=== PATIENT | male | born 1980 | race American Indian/Alaskan Native ===

== ENCOUNTER 2018-03-07 19:04 | Emergency (ER) | payer MEDICAID ==
[2018-03-07 19:48] VITALS: BP 150/110
[2018-03-07] MEDS ORDERED: MOTRIN PO ONE (21:40)
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
== END 2018-03-07 22:44 | disposition home health service (06) ==
LOC: ED 19:04
DX: S00.03XA Contusion of scalp, initial encounter (principal); S00.81XA Abrasion of other part of head, initial encounter; Y04.2XXA Assault by strike against or bumped into by another person, initial encounter; Y93.89 Activity, other specified; Y99.8 Other external cause status; Y92.89 Other specified places as the place of occurrence of the external cause
CPT/HCPCS: 70450; 70486

== ENCOUNTER 2019-02-12 14:59 | Emergency (ER) | payer MEDICAID ==
[2019-02-12 15:37] LABS: Basophils # (Auto) 0.1 K/mm3 (0.0-0.1); Basophils % (Auto) 0.9 % (0.0-1.8); Eosinophils % (Auto) 0.3 % (0.0-4.3); Hematocrit 47.4 % (35.5-45.6); Hemoglobin 15.6 gm/dl (11.8-15.2); Lymphocytes # (Auto) 2.7 K/mm3 (1.2-5.4); Lymphocytes % (Auto) 31.2 % (13.4-35.0); Mean Corpuscular HGB Conc 33 % (32-34); Mean Corpuscular Volume 80 fl (84-94); Monocytes # (Auto) 0.6 K/mm3 (0.0-0.8); Platelet Count 212 K/mm3 (140-440); Red Blood Count 5.93 M/mm3 (3.65-5.03); Red Cell Distribution Width 16.2 % (13.2-15.2)
[2019-02-12 15:56] LABS: BUN/Creatinine Ratio 13; Blood Urea Nitrogen 12 mg/dL (9-20); Calcium 9.1 mg/dL (8.4-10.2); Hemolysis Index 30
[2019-02-12 16:06] LABS: Bacteria,Urine 4+ /HPF (Negative); Bilirubin,Urine NEG (Negative); Blood,Urine SM (Negative); Color,Urine Yellow (Yellow); Mucus,Urine FEW /HPF; Protein,Urine <15 mg/dL mg/dL (Negative)
[2019-02-12 16:11] LABS: Amphetamine Screen,Urine PRESUMPTIVE NEGATIVE; Benzodiazepines Screen,Urine PRESUMPTIVE NEGATIVE; Cannabinoid Screen,Urine PRESUMPTIVE NEGATIVE; Cocaine Screen,Urine PRESUMPTIVE NEGATIVE; Methadone Screen,Urine PRESUMPTIVE NEGATIVE; Opiate Screen,Urine PRESUMPTIVE NEGATIVE
[2019-02-12] MEDS ORDERED: ATIVAN IM PRN (16:14)
[2019-02-12] MEDS ORDERED: HALDOL IM PRN (16:14)
[2019-02-12] MEDS ORDERED: BENADRYL IM PRN (16:14)
--- NOTE | 2019-02-12 16:16 | Emergency Department Report ---
HPI - General Chief Complaint: Psych Time Seen by Provider: 02/12/19 16:07 - HPI HPI: Room 16 The patient is a 38-year-old male presenting with chief complaint suicidal ideation. The patient states she's had suicidal ideation for one day. Patient denies any active attempt at harming himself states his plan was to use a a pencil or knife and "cut myself in the heart and then jump off the bridge." Patient has a history of previous suicide attempts. Location: Mental state Duration: [See above] Quality: [See above] Severity: [See above] Modifying factors: [see above] Context: [see above] Mode of transportation: [not driving] ED Past Medical Hx - Past Medical History Previous Medical History?: Yes Hx Psychiatric Treatment: Yes (schizophrenic, Bipolar, mental and physically challenged) - Surgical History Past Surgical History?: Yes Additional Surgical History: Reconstructive facial surgery - Family History Family history: no significant - Social History Smoking Status: Never Smoker Substance Use Type: None - Medications Home Medications: Home Medications Medication Instructions Recorded Confirmed Last Taken Type Divalproex ER [DepaKOTE ER] 500 mg PO QHS 02/12/19 02/12/19 Unknown History Docusate Sodium [Move It Along] 100 mg PO QHS 02/12/19 02/12/19 Unknown History FLUoxetine HCL [FLUoxetine] 20 mg PO QAM 02/12/19 02/12/19 Unknown History Propranolol [Inderal] 10 mg PO BID 02/12/19 02/12/19 Unknown History QUEtiapine [SEROquel] 100 mg PO QHS 02/12/19 02/12/19 Unknown History Ziprasidone [Geodon] 60 mg PO BID 02/12/19 02/12/19 Unknown History cloNIDine [Catapres] 0.05 mg PO BID 02/12/19 02/12/19 Unknown History clonazePAM [Klonopin] 1 mg PO BID 02/12/19 02/12/19 Unknown History ED Review of Systems ROS: Stated complaint: EVALUATION Other details as noted in HPI Constitutional: no symptoms reported Eyes: denies: eye pain ENT: denies: throat pain Respiratory: no symptoms reported Cardiovascular: denies: chest pain Endocrine: no symptoms reported Gastrointestinal: denies: abdominal pain Genitourinary: denies: dysuria Musculoskeletal: denies: back pain Neurological: denies: headache Psychiatric: suicidal thoughts Physical Exam - Physical Exam Vital Signs: Vital Signs 02/12/19 02/12/19 15:07 16:06 Temperature 98.8 F Pulse Rate 73 Respiratory 16 16 Rate Blood Pressure 146/100 [Right] O2 Sat by Pulse 97 Oximetry Physical Exam: GENERAL: The patient is well-developed well-nourished male lying on stretcher not appearing to be in acute distress. [] HEENT: Extraocular motions are intact. Patient has moist mucous membranes. NECK: Supple. Trachea midline CHEST/LUNGS: Clear to auscultation. There is no respiratory distress noted. HEART/CARDIOVASCULAR: Regular. There is no tachycardia. There is no gallop rub or murmur. ABDOMEN: Abdomen is soft, nontender. Patient has normal bowel sounds. There is no abdominal distention. SKIN: There is no rash. There is no edema. There is no diaphoresis. NEURO: The patient is awake, alert, and oriented. The patient is cooperative. The patient has normal speech MUSCULOSKELETAL:There is no evidence of acute injury. ED Course Vital Signs 02/12/19 02/12/19 15:07 16:06 Temperature 98.8 F Pulse Rate 73 Respiratory 16 16 Rate Blood Pressure 146/100 [Right] O2 Sat by Pulse 97 Oximetry ED Medical Decision Making - Lab Data Result diagrams: 02/12/19 15:13 02/12/19 15:13 Laboratory Tests 02/12/19 02/12/19 02/12/19 15:13 15:13 15:13 WBC RBC Hgb Hct MCV MCH MCHC RDW Plt Count Lymph % (Auto) [place] % (Auto) Eos % (Auto) Baso % (Auto) Lymph # [place] # Eos # Baso # Seg Neutrophils % Seg Neutrophils # Sodium 139 Potassium 4.1 Chloride 101.5 Carbon Dioxide 26 Anion Gap 16 BUN 12 Creatinine 0.9 Estimated GFR > 60 BUN/Creatinine Ratio 13 Glucose 100 Calcium 9.1 Urine Color Urine Turbidity Urine pH Ur Specific [place] Urine Protein Urine Glucose (UA) Urine Ketones Urine Blood Urine Nitrite Urine Bilirubin Urine Urobilinogen Ur Leukocyte Esterase Urine WBC (Auto) Urine RBC (Auto) Urine Bacteria (Auto) Urine Mucus Salicylates < 0.3 L Urine Opiates Screen Urine Methadone Screen Acetaminophen < 5.0 L Ur Barbiturates Screen Valproic Acid Ur Phencyclidine Scrn Ur Amphetamines Screen U Benzodiazepines Scrn Urine Cocaine Screen U Marijuana (THC) Screen Drugs of Abuse Note Plasma/Serum Alcohol 02/12/19 02/12/19 02/12/19 15:13 15:13 15:13 WBC 8.7 RBC 5.93 H Hgb 15.6 H Hct 47.4 H MCV 80 L MCH 26 L MCHC 33 RDW 16.2 H Plt Count 212 Lymph % (Auto) 31.2 [place]anan % (Auto) 7.0 Eos % (Auto) 0.3 Baso % (Auto) 0.9 Lymph # 2.7 [place]anan # 0.6 Eos # 0.0 Baso # 0.1 Seg Neutrophils % 60.6 Seg Neutrophils # 5.3 Sodium Potassium Chloride Carbon Dioxide Anion Gap BUN Creatinine Estimated GFR BUN/Creatinine Ratio Glucose Calcium Urine Color Urine Turbidity Urine pH Ur Specific [place] Urine Protein Urine Glucose (UA) Urine Ketones Urine Blood Urine Nitrite Urine Bilirubin Urine Urobilinogen Ur Leukocyte Esterase Urine WBC (Auto) Urine RBC (Auto) Urine Bacteria (Auto) Urine Mucus Salicylates Urine Opiates Screen Urine Methadone Screen Acetaminophen Ur Barbiturates Screen Valproic Acid 91.8 Ur Phencyclidine Scrn Ur Amphetamines Screen U Benzodiazepines Scrn Urine Cocaine Screen U Marijuana (THC) Screen Drugs of Abuse Note Plasma/Serum Alcohol < 0.01 02/12/19 02/12/19 15:40 15:40 WBC RBC Hgb Hct MCV MCH MCHC RDW Plt Count Lymph % (Auto) [place] % (Auto) Eos % (Auto) Baso % (Auto) Lymph # [place] # Eos # Baso # Seg Neutrophils % Seg Neutrophils # Sodium Potassium Chloride Carbon Dioxide Anion Gap BUN Creatinine Estimated GFR BUN/Creatinine Ratio Glucose Calcium Urine Color Yellow Urine Turbidity Slightly-cloudy Urine pH 6.0 Ur Specific [place] 1.019 Urine Protein <15 mg/dl Urine Glucose (UA) Neg Urine Ketones Tr Urine Blood Sm Urine Nitrite Pos Urine Bilirubin Neg Urine Urobilinogen 2.0 Ur Leukocyte Esterase Mod Urine WBC (Auto) 67.0 H Urine RBC (Auto) 20.0 Urine Bacteria (Auto) 4+ Urine Mucus Few Salicylates Urine Opiates Screen Presumptive negative Urine Methadone Screen Presumptive negative Acetaminophen Ur Barbiturates Screen Presumptive negative Valproic Acid Ur Phencyclidine Scrn Presumptive negative Ur Amphetamines Screen Presumptive negative U Benzodiazepines Scrn Presumptive negative Urine Cocaine Screen Presumptive negative U Marijuana (THC) Screen Presumptive negative Drugs of Abuse Note Disclamer Plasma/Serum Alcohol - Differential Diagnosis suicidal ideation Critical care attestation.: If time is entered above; I have spent that time in minutes in the direct care of this critically ill patient, excluding procedure time. ED Disposition Clinical Impression: Suicidal ideation Disposition: DC/TX-65 PSY HOSP/PSY UNIT Is pt being admited?: No Does the pt Need Aspirin: No Condition: Serious Time of Disposition: 16:25 (awaiting acceptance)
[2019-02-12] MEDS ORDERED: LEVAQUIN PO SCH (22:00)
[2019-02-13 08:09] LABS: Alanine Aminotransferase 5 units/L (7-56)
[2019-02-13 08:39] VITALS: BP 146/88
[2019-02-13] MEDS ORDERED: CATAPRES PO SCH (10:00)
[2019-02-13] MEDS ORDERED: INDERAL PO SCH (10:00)
--- NOTE | 2019-02-13 11:37 | Consultation ---
History of Present Illness - Reason for Consult Consult date: 02/13/19 Reason for consult: Mental Health Evaluation Requesting physician: LEA RESTREPO - Chief Complaint Chief complaint: "I heard someone say something" - History of Present Psychiatric Illness 38 y.o. AA male who presented to the ER for SI's. Today the patient was calm during the assessment. He stated that he mentioned killing himself at his day program because he heard another resident mention that. He stated, "I was repeating what I heard." Per collateral information from the patient's campground caretaker Mr Julius Jacinto at [phone] confirmed that the patient may have heard another one of his client mention something about "suicide." He stated that he have taken care the patient the last 10 months. He stated that the patient never mentioned being suicidal or attempted suicide in his care. He stated that the patent is seen by Dr De Oliveira for outpatient psy services. He stated that the patient is compliant with his medications. The patient denies SI/HI's and AVH's. Medications and Allergies Allergies Allergy/AdvReac Type Severity Reaction Status Date / Time No Known Allergies Allergy Verified 02/12/19 21:20 Home Medications Medication Instructions Recorded Confirmed Last Taken Type Divalproex ER [DepaKOTE ER] 500 mg PO QHS 02/12/19 02/12/19 Unknown History Docusate Sodium [Move It Along] 100 mg PO QHS 02/12/19 02/12/19 Unknown History FLUoxetine HCL [FLUoxetine] 20 mg PO QAM 02/12/19 02/12/19 Unknown History Propranolol [Inderal] 10 mg PO BID 02/12/19 02/12/19 Unknown History QUEtiapine [SEROquel] 100 mg PO QHS 02/12/19 02/12/19 Unknown History Ziprasidone [Geodon] 60 mg PO BID 02/12/19 02/12/19 Unknown History cloNIDine [Catapres] 0.05 mg PO BID 02/12/19 02/12/19 Unknown History clonazePAM [Klonopin] 1 mg PO BID 02/12/19 02/12/19 Unknown History Active Meds: Active Medications Clonidine HCl (Catapres) 0.05 mg PO BID CARIE Last Admin: 02/13/19 11:02 Dose: 0.05 mg Documented by: Diphenhydramine HCl (Benadryl) 50 mg IM Q6H PRN PRN Reason: Agitation Levofloxacin (Levaquin) 500 mg PO QDAY@2200 [facility] Stop: 02/18/19 22:00 Last Admin: 02/12/19 22:01 Dose: 500 mg Documented by: Lorazepam (Ativan) 2 mg IM Q8H PRN PRN Reason: Agitation Propranolol HCl (Inderal) 10 mg PO BID [facility] Last Admin: 02/13/19 11:04 Dose: 10 mg Documented by: Past psychiatric history - Past Medical History Past Medical History: other (Unable to obtain ) Past Surgical History: Other (Unabel to obtain ) - past Psychiatric treatment and history psychiatric treatment history: Unable to obtain a psy hx and fam psy hx. - Social History Social history: other (Reside at [facility] Mental Status Exam - Vital signs Last Vital Signs Temp 97.5 F L 02/13/19 08:00 Pulse 62 02/13/19 11:04 Resp 18 02/13/19 08:00 BP 146/88 02/13/19 11:04 Pulse Ox 100 02/13/19 08:00 - Exam Narrative exam: MSE: Appearance: calm Behavior: regular eye contact Speech: regular rate and tone Mood: "okay" Affect: congruent to mood Thought Process: circumstantial Thought Content: denies SI/HI's and AVH's Motor Activity: sitting up in the bed Cognition: A/O x 3 Insight: fair Judgment: variable to fair Results Result Diagrams: 02/12/19 15:13 02/12/19 15:13 Abnormal lab results 02/12/19 02/12/19 02/12/19 Range/Units 15:13 15:13 15:13 RBC 5.93 H (3.65-5.03) M/mm3 Hgb 15.6 H (11.8-15.2) gm/dl Hct 47.4 H (35.5-45.6) % MCV 80 L (84-94) fl MCH 26 L (28-32) pg RDW 16.2 H (13.2-15.2) % ALT (7-56) units/L Urine WBC (Auto) (0.0-6.0) /HPF Salicylates < 0.3 L (2.8-20.0) mg/dL Acetaminophen < 5.0 L (10.0-30.0) ug/mL 02/12/19 02/13/19 Range/Units 15:40 07:42 RBC (3.65-5.03) M/mm3 Hgb (11.8-15.2) gm/dl Hct (35.5-45.6) % MCV (84-94) fl MCH (28-32) pg RDW (13.2-15.2) % ALT 5 L (7-56) units/L Urine WBC (Auto) 67.0 H (0.0-6.0) /HPF Salicylates (2.8-20.0) mg/dL Acetaminophen (10.0-30.0) ug/mL All other labs normal. Assessment and Plan Assessment and plan: Impression: Unspecified Intellectual Disability. Today the patient was calm during the assessment. The patient is no threat to self. Recommendation/Plan: Rescind 1013. The patient do not need any prescriptions. Dispo: The patient can follow up with Dr De Oliveira for outpatient psy services. Will staff with Dr Axel Zavala.
== END 2019-02-13 13:14 | disposition home or self-care (01) ==
LOC: EEVIPCON 14:59 → ED 14:59
DX: F79 Unspecified intellectual disabilities (principal); F20.9 Schizophrenia, unspecified; F31.9 Bipolar disorder, unspecified
CPT/HCPCS: 36415; 80048; 80164; 80307; 81001; 82150; 82962; 83690; 84075; 84450; 84460; 85025; 87076; 87086; 87186; 99284; G0480; 80320

== ENCOUNTER 2019-10-20 10:06 | Outpatient (CLI) | payer MEDICAID ==
--- NOTE | 2019-10-22 15:52 | Cat Scan Report ---
CT ABDOMEN AND PELVIS WITHOUT CONTRAST INDICATION / CLINICAL INFORMATION: N20.0Calculus of kidney. TECHNIQUE: Axial CT images were obtained through the abdomen and pelvis without IV contrast. Sagittal and sousa l reformatted images. All CT scans at this location are performed using CT dose reduction for ALARA b y means of automated exposure control. COMPARISON: None available. FINDINGS: LOWER CHEST: No significant abnormality. LIVER: No significant abnormality. GALLBLADDER: No significant abnormality. BILE DUCTS: No significant abnormality. PANCREAS: No significant abnormality. SPLEEN: No significant abnormality. ADRENALS: No significant abnormality. RIGHT KIDNEY and URETER: No significant abnormality. LEFT KIDNEY and URETER: No significant abnormality. STOMACH and SMALL BOWEL: No significant abnormality. COLON: No significant abnormality. APPENDIX: Not confidently identified. PERITONEUM: No free fluid. No free air. No fluid collection. LYMPH NODES: No significant adenopathy. AORTA and ARTERIES: No significant abnormality. IVC and VEINS: No significant abnormality. URINARY BLADDER: No significant abnormality. REPRODUCTIVE ORGANS: No significant abnormality. ADDITIONAL FINDINGS: None. SKELETAL SYSTEM: No significant abnormality. IMPRESSION: No significant abnormality. No nephrolithiasis is detected. Signer Name: Zackery Hernandez Jr, MD Signed: 10/20/2019 11:14 AM Workstation Name: [id number]
== END 2019-10-20 10:07 | disposition home or self-care (01) ==
LOC: CT 10:06
PROVIDERS: ATTEND Urology
DX: N20.0 Calculus of kidney (principal)
CPT/HCPCS: 74176

== ENCOUNTER 2020-11-26 19:08 | Emergency (ER) | payer MEDICAID ==
[2020-11-26 20:09] VITALS: BP 146/99
--- NOTE | 2020-11-26 20:50 | Emergency Department Report ---
Chief Complaint: Medical Clearance Stated Complaint: INGESTION Time Seen by Provider: 11/26/20 20:47 - HPI History of Present Illness: 40-year-old male patient presents emergency department from [facility] accompanied by state employee for medical clearance. Patient took 1 unauthorized laxative 2 days ago. Patient denies attempting to harm himself intentionally. He is asymptomatic. No complaints. - ROS Review of Systems: GENERAL: Negative for fever. CARDIOVASCULAR: Negative for chest pain. PULMONARY: Negative for shortness of breath. GASTROINTESTINAL: Negative for abdominal pain. MUSCULOSKELETAL: Negative for back pain. NEUROLOGICAL: Negative for headache. INTEGUMENTARY: Negative for rash. - Exam Vital Signs: Vital Signs 11/26/20 20:04 Temperature 98.6 F Pulse Rate 75 Respiratory 16 Rate Blood Pressure 146/99 O2 Sat by Pulse 94 Oximetry Physical Exam: General: Awake, appropriately interactive, no acute distress. Neck: Supple. Full range of motion intact. Cardiovascular: Normal peripheral perfusion. Pulmonary: No respiratory distress. Patient is speaking normally without use of accessory muscles. Abdomen: Soft, nontender, nondistended. Skin: No apparent rashes or lesions. Neurological: No facial asymmetry. Speech is clear. Follows commands. Musculoskeletal: Moves all four extremities spontaneously with normal range of motion. MSE screening note: Focused history and physical exam performed. Due to findings the following was ordered: ED Medical Decision Making - Medical Decision Making Patient was sent to the emergency department by his residential facility for medical clearance after taking one laxative 2 days ago. He has no complaints. Physical examination is normal. He was not attempting to harm himself. No clinical indication for further diagnostic work-up on an emergent basis or for involuntary psychiatric hold orders at this time. Patient has been medically cleared and will be discharged back to his residential facility. ED Disposition for MSE Clinical Impression: General medical exam Disposition: Z-01 MED SCREENING EXAM-CONT Is pt being admited?: No Does the pt Need Aspirin: No Condition: Stable Instructions: Medical Screening Exam Additional Instructions: Dev Jordan has been medically cleared to return to his facility. Return to the emergency department for any new symptoms. Referrals: SERGIO MAYO MD [Primary Care Provider] - 3-5 Days Time of Disposition: 20:50
== END 2020-11-26 21:25 | disposition home or self-care (01) ==
LOC: ED 19:08
DX: Z00.00 Encounter for general adult medical examination without abnormal findings (principal); Z53.21 Procedure and treatment not carried out due to patient leaving prior to being seen by health care provider

== ENCOUNTER 2020-12-03 18:22 | Emergency (ER) | payer MEDICAID ==
[2020-12-03] MEDS ORDERED: ONDANSETRON 4 MG/2 ML INJ ONE (18:40)
[2020-12-03] MEDS ORDERED: ONDANSETRON 4 MG/2 ML INJ IV ONE (18:45)
[2020-12-03] MEDS ORDERED: PANTOPRAZOLE 40 MG INJ IV ONE (19:37)
--- NOTE | 2020-12-03 19:43 | Emergency Department Report ---
ED Abdominal Pain HPI - General Stated Complaint: STOMACH PAIN PUI?: No Time Seen by Provider: 12/03/20 19:35 Source: patient, EMS, old records reviewed Mode of arrival: Ambulatory Limitations: No Limitations - History of Present Illness Initial Comments: CC: abdominal pain HPI: This is a 40 yo male with history of traumatic brain injury intellectual delay schizophrenia bipolar disorder who presents from personal correction with abdominal pain and vomiting. He rapidly ate ravioli this afternoon. After vomiting several times, the abdominal comfort has resolved. He denies fever, diarrhea. His last bowel movement was 8 days ago last week . Patient arrived via EMS. MD Complaint: abdominal pain -: This morning Location: diffuse Severity: mild Quality: dull Consistency: now resolved Improves With: movement Worsens With: nothing Associated Symptoms: nausea, vomiting, constipation - Related Data Home Medications Medication Instructions Recorded Confirmed Last Taken Divalproex ER [DepaKOTE ER] 500 mg PO QHS 02/12/19 02/12/19 Unknown Docusate Sodium [Move It Along] 100 mg PO QHS 02/12/19 02/12/19 Unknown FLUoxetine HCL [FLUoxetine] 20 mg PO QAM 02/12/19 02/12/19 Unknown QUEtiapine [SEROquel] 100 mg PO QHS 02/12/19 02/12/19 Unknown Ziprasidone [Geodon] 60 mg PO BID 02/12/19 02/12/19 Unknown cloNIDine [Catapres] 0.05 mg PO BID 02/12/19 02/12/19 Unknown clonazePAM [Klonopin] 1 mg PO BID 02/12/19 02/12/19 Unknown propranoloL [Inderal] 10 mg PO BID 02/12/19 02/12/19 Unknown Previous Rx's Medication Instructions Recorded Last Taken Type Lactulose [Cephulac] 30 ml PO QDAY PRN #90 ml 12/03/20 Unknown Rx Ondansetron [Zofran Odt] 4 mg PO Q8HR PRN #10 tab.rapdis 12/03/20 Unknown Rx Allergies Allergy/AdvReac Type Severity Reaction Status Date / Time No Known Allergies Allergy Verified 02/12/19 21:20 ED Review of Systems ROS: Stated complaint: STOMACH PAIN Other details as noted in HPI Comment: All other systems reviewed and negative Constitutional: denies: fever, malaise Respiratory: denies: cough, shortness of breath Gastrointestinal: abdominal pain, nausea, vomiting, constipation ED Past Medical Hx - Past Medical History Previous Medical History?: Yes Hx Psychiatric Treatment: Yes (schizophrenic, Bipolar, mental and physically challenged) Additional medical history: TBI - Surgical History Past Surgical History?: Yes Additional Surgical History: Reconstructive facial surgery - Social History Smoking Status: Current Some Day Smoker - Medications Home Medications: Home Medications Medication Instructions Recorded Confirmed Last Taken Type Divalproex ER [DepaKOTE ER] 500 mg PO QHS 02/12/19 02/12/19 Unknown History Docusate Sodium [Move It Along] 100 mg PO QHS 02/12/19 02/12/19 Unknown History FLUoxetine HCL [FLUoxetine] 20 mg PO QAM 02/12/19 02/12/19 Unknown History QUEtiapine [SEROquel] 100 mg PO QHS 02/12/19 02/12/19 Unknown History Ziprasidone [Geodon] 60 mg PO BID 02/12/19 02/12/19 Unknown History cloNIDine [Catapres] 0.05 mg PO BID 02/12/19 02/12/19 Unknown History clonazePAM [Klonopin] 1 mg PO BID 02/12/19 02/12/19 Unknown History propranoloL [Inderal] 10 mg PO BID 02/12/19 02/12/19 Unknown History Lactulose [Cephulac] 30 ml PO QDAY PRN #90 ml 12/03/20 Unknown Rx Ondansetron [Zofran Odt] 4 mg PO Q8HR PRN #10 tab.rapdis 12/03/20 Unknown Rx ED Physical Exam - General Limitations: No Limitations General appearance: alert, in no apparent distress, other (Pleasant no acute distress talkative appears comfortable) - Head Head exam: Present: atraumatic, normocephalic - Eye Eye exam: Present: normal appearance - ENT ENT exam: Present: mucous membranes moist - Neck Neck exam: Present: normal inspection, full ROM - Respiratory Respiratory exam: Present: normal lung sounds bilaterally. Absent: respiratory distress, wheezes, rales, rhonchi - Cardiovascular Cardiovascular Exam: Present: regular rate, normal rhythm, normal heart sounds. Absent: systolic murmur, diastolic murmur, rubs, gallop - GI/Abdominal GI/Abdominal exam: Present: soft, normal bowel sounds. Absent: distended, tenderness, guarding, rebound - Rectal Rectal exam: Present: deferred - Extremities Exam Extremities exam: Present: normal inspection - Neurological Exam Neurological exam: Present: alert, oriented X3 - Psychiatric Psychiatric exam: Present: normal mood, flat affect - Skin Skin exam: Present: warm, dry, intact, normal color. Absent: rash ED Course Vital Signs 12/03/20 20:04 Temperature 98.6 F Pulse Rate 71 Respiratory 18 Rate Blood Pressure 137/96 [Left] O2 Sat by Pulse 97 Oximetry ED Medical Decision Making - Lab Data Result diagrams: 12/03/20 19:40 12/03/20 19:40 - Medical Decision Making Dyspepsia, indigestion: CBC chemistry within normal limits. Resolution of mild hypokalemia. Do suspect that constipation is a contributing factor. Urinalysis contaminated without overt signs of UTI. Patient is discharged home with prescription for lactulose as needed for constipation Critical care attestation.: If time is entered above; I have spent that time in minutes in the direct care of this critically ill patient, excluding procedure time. ED Disposition Clinical Impression: Dyspepsia, Indigestion, Constipation Disposition: DC-01 TO HOME OR SELFCARE Is pt being admited?: No Does the pt Need Aspirin: No Condition: Stable Instructions: Indigestion, [id number], Chronic Constipation Prescriptions: Lactulose [Cephulac] 30 ml PO QDAY PRN #90 ml PRN Reason: Constipation Ondansetron [Zofran Odt] 4 mg PO Q8HR PRN #10 tab.rapdis PRN Reason: Nausea Referrals: ALLIE MATHEWS MD [Staff Physician] - as needed
[2020-12-03 20:05] VITALS: BP 137/96
[2020-12-03 20:25] LABS: Basophils # (Auto) 0.2 K/mm3 (0.0-0.1); Basophils % (Auto) 2.2 % (0.0-1.8); Eosinophils % (Auto) 0.4 % (0.0-4.3); Hematocrit 46.4 % (35.5-45.6); Lymphocytes # (Auto) 2.7 K/mm3 (1.2-5.4); Lymphocytes % (Auto) 38.9 % (13.4-35.0); Mean Corpuscular HGB Conc 30 % (32-34); Mean Corpuscular Volume 74 fl (84-94); Platelet Count 207 K/mm3 (140-440); Red Blood Count 6.26 M/mm3 (3.65-5.03); Red Cell Distribution Width 19.2 % (13.2-15.2)
[2020-12-03 20:35] LABS: Bacteria,Urine 2+ /HPF (Negative); Bilirubin,Urine NEG (Negative); Blood,Urine NEG (Negative); Color,Urine Yellow (Yellow); Mucus,Urine FEW /HPF; Protein,Urine <15 mg/dL mg/dL (Negative)
[2020-12-03 21:15] LABS: Alanine Aminotransferase 9 units/L (7-56); BUN/Creatinine Ratio 11; Blood Urea Nitrogen 9 mg/dL (9-20); Calcium 8.7 mg/dL (8.4-10.2); Hemolysis Index 16
== END 2020-12-03 22:25 | disposition home or self-care (01) ==
LOC: ED 18:22
DX: K59.00 Constipation, unspecified (principal); K30 Functional dyspepsia; F20.9 Schizophrenia, unspecified; F31.9 Bipolar disorder, unspecified; F17.200 Nicotine dependence, unspecified, uncomplicated; Z98.890 Other specified postprocedural states; Z79.899 Other long term (current) drug therapy
CPT/HCPCS: 36415; 80053; 81001; 83690; 85025; 96374; 96375; 99284; C9113; J2405

== ENCOUNTER 2021-03-12 17:23 | Emergency (ER) | payer MEDICAID ==
[2021-03-12 17:31] VITALS: BP 149/100
--- NOTE | 2021-03-12 19:04 | Emergency Department Report ---
ED General Adult HPI - General Chief complaint: High BP Stated complaint: CHECK BP Time Seen by Provider: 03/12/21 17:42 Source: patient Mode of arrival: Ambulatory Limitations: No Limitations - History of Present Illness Initial comments: 40-year-old -[place] male patient with history of traumatic brain injury intellectual delay schizophrenia bipolar disorder presents with his senior center manager for elevated blood pressure reading today. Patient's senior center manager states his nurse noted his blood pressure to be 146/100 today. Patient denies any headache or other symptoms. His senior center manager states he has been behaving normally and has not had any complaints. No prior history of hypertension per patient's senior center manager. - Related Data Home Medications Medication Instructions Recorded Confirmed Last Taken Divalproex ER [DepaKOTE ER] 500 mg PO QHS 02/12/19 02/12/19 Unknown Docusate Sodium [Move It Along] 100 mg PO QHS 02/12/19 02/12/19 Unknown FLUoxetine HCL [FLUoxetine] 20 mg PO QAM 02/12/19 02/12/19 Unknown QUEtiapine [SEROquel] 100 mg PO QHS 02/12/19 02/12/19 Unknown Ziprasidone [Geodon] 60 mg PO BID 02/12/19 02/12/19 Unknown cloNIDine [Catapres] 0.05 mg PO BID 02/12/19 02/12/19 Unknown clonazePAM [Klonopin] 1 mg PO BID 02/12/19 02/12/19 Unknown propranoloL [Inderal] 10 mg PO BID 02/12/19 02/12/19 Unknown Previous Rx's Medication Instructions Recorded Last Taken Type Lactulose [Cephulac] 30 ml PO QDAY PRN #90 ml 12/03/20 Unknown Rx Ondansetron [Zofran Odt] 4 mg PO Q8HR PRN #10 tab.rapdis 12/03/20 Unknown Rx Allergies Allergy/AdvReac Type Severity Reaction Status Date / Time No Known Allergies Allergy Verified 03/12/21 17:24 ED Review of Systems ROS: Stated complaint: CHECK BP Other details as noted in HPI Constitutional: denies: diaphoresis, malaise, weakness Respiratory: denies: cough, shortness of breath Cardiovascular: denies: chest pain Neurological: denies: headache, other (Dizziness) ED Past Medical Hx - Past Medical History Hx Psychiatric Treatment: Yes (schizophrenic, Bipolar, mental and physically challenged) Additional medical history: TBI - Surgical History Additional Surgical History: Reconstructive facial surgery - Social History Smoking Status: Never Smoker Substance Use Type: None - Medications Home Medications: Home Medications Medication Instructions Recorded Confirmed Last Taken Type Divalproex ER [DepaKOTE ER] 500 mg PO QHS 02/12/19 02/12/19 Unknown History Docusate Sodium [Move It Along] 100 mg PO QHS 02/12/19 02/12/19 Unknown History FLUoxetine HCL [FLUoxetine] 20 mg PO QAM 02/12/19 02/12/19 Unknown History QUEtiapine [SEROquel] 100 mg PO QHS 02/12/19 02/12/19 Unknown History Ziprasidone [Geodon] 60 mg PO BID 02/12/19 02/12/19 Unknown History cloNIDine [Catapres] 0.05 mg PO BID 02/12/19 02/12/19 Unknown History clonazePAM [Klonopin] 1 mg PO BID 02/12/19 02/12/19 Unknown History propranoloL [Inderal] 10 mg PO BID 02/12/19 02/12/19 Unknown History Lactulose [Cephulac] 30 ml PO QDAY PRN #90 ml 12/03/20 Unknown Rx Ondansetron [Zofran Odt] 4 mg PO Q8HR PRN #10 tab.rapdis 12/03/20 Unknown Rx ED Physical Exam - General Limitations: No Limitations General appearance: alert, in no apparent distress - Head Head exam: Present: atraumatic, normocephalic - Eye Eye exam: Present: normal appearance. Absent: scleral icterus - Respiratory Respiratory exam: Absent: respiratory distress - Cardiovascular Cardiovascular Exam: Present: regular rate, normal rhythm - Neurological Exam Neurological exam: Present: alert, normal gait - Psychiatric Psychiatric exam: Present: normal affect, normal mood - Skin Skin exam: Present: warm, dry, intact, normal color. Absent: rash, cyanosis, diaphoretic ED Course Vital Signs 03/12/21 17:24 Temperature 98.3 F Pulse Rate 78 Respiratory 20 Rate Blood Pressure 149/100 O2 Sat by Pulse 95 Oximetry ED Medical Decision Making - Medical Decision Making 40-year-old -[place] male patient with history of traumatic brain injury intellectual delay schizophrenia bipolar disorder presents with his senior center manager for elevated blood pressure reading today. Patient's senior center manager states his nurse noted his blood pressure to be 146/100 today. Patient denies any headache or other symptoms. His senior center manager states he has been behaving normally and has not had any complaints. No prior history of hypertension per patient's senior center manager. BP noted to be 147/100 here in the ED today. Patient's previous visits were reviewed and his blood pressure noted to be persistently about 1 40-1 50/98-100. Suspect patient does have hypertension, however I recommend patient follows up with his primary care doctor for further evaluation and treatment given he is asymptomatic and this issue is chronic. He is well-appearing and stable for discharge home. Strict return precautions were discussed in detail with patient's caregiver who verbalizes understanding. Critical care attestation.: If time is entered above; I have spent that time in minutes in the direct care of this critically ill patient, excluding procedure time. ED Disposition Clinical Impression: Elevated blood pressure reading Disposition: DC-01 TO HOME OR SELFCARE Is pt being admited?: No Condition: Stable Instructions: Hypertension, Adult Referrals: PRIMARY CARE, [Primary Care Provider] - 3-5 Days
== END 2021-03-12 21:00 | disposition home or self-care (01) ==
LOC: ED 17:23
DX: R03.0 Elevated blood-pressure reading, without diagnosis of hypertension (principal); F25.0 Schizoaffective disorder, bipolar type; Z79.899 Other long term (current) drug therapy; Z98.890 Other specified postprocedural states
CPT/HCPCS: 99282